=== PATIENT | female | born 1980 | race American Indian/Alaskan Native ===

== ENCOUNTER 2018-02-15 23:38 | Emergency (ER) | payer SELFPAY ==
[2018-02-16 00:42] VITALS: BP 108/68
--- NOTE | 2018-02-16 01:17 | XRay Report ---
FINAL REPORT PROCEDURE: XR SHOULDER 2+V RT TECHNIQUE: Right shoulder radiographs including AP views in internal and external rotation and abduction. CPT 93938 HISTORY: trauma, pain COMPARISON: No prior studies are available for comparison. FINDINGS: Fracture (s) and/or Dislocation(s): None . Joint space(s): Normal . Soft tissues: Normal . Bone mineralization: Normal . Foreign bodies: None . IMPRESSION: Normal Examination
--- NOTE | 2018-02-16 01:20 | XRay Report ---
FINAL REPORT PROCEDURE: XR WRIST 2V RT TECHNIQUE: RIGHT wrist radiographs, AP and lateral views. HISTORY: trauma, pain COMPARISON: No prior studies are available for comparison. FINDINGS: Fracture(s)and/or Dislocation(s): None. Alignment: Normal. Joint space(s): Normal. Soft tissues: Normal. Bone mineralization: Normal. Foreign bodies: None. IMPRESSION: Normal Examination
== END 2018-02-16 01:53 | disposition left against medical advice (07) ==
LOC: ED 23:38
DX: M25.511 Pain in right shoulder (principal); Z53.21 Procedure and treatment not carried out due to patient leaving prior to being seen by health care provider